=== PATIENT | male | born 1970 | race Two or more races ===

== ENCOUNTER 2018-11-30 14:19 | Emergency (ER) | payer MEDICARE, MEDICAID ==
[~2018-11-30] VITALS: Ht 177.8 cm; Wt 127.0 kg
[~2018-11-30 14:19] MED LIST: FER325T PO; FURO40TA PO; GABA-339 PO; IBU600T PO; RIFA550T PO; SPIR50TA5 PO; ZOLP10TA PO
[2018-11-30 14:28] VITALS: BP 158/83
[2018-11-30] MEDS ORDERED: KETOROLAC TROMETH 60MG/2ML VIAL IM ONE (16:15)
[2018-11-30] MEDS ORDERED: HYDROcodone-ACET 10/325MG TAB PO ONE (16:15)
== END 2018-11-30 17:05 | disposition home or self-care (01) ==
LOC: EDBD 14:19 → ER 14:27
DX: S16.1XXA Strain of muscle, fascia and tendon at neck level, initial encounter (principal); S29.012A Strain of muscle and tendon of back wall of thorax, initial encounter; E11.9 Type 2 diabetes mellitus without complications; I10 Essential (primary) hypertension; W19.XXXA Unspecified fall, initial encounter; Y93.89 Activity, other specified; Y99.8 Other external cause status; Y92.89 Other specified places as the place of occurrence of the external cause
CPT/HCPCS: 72040; 72070; 96372; 99283; J1885